=== PATIENT | female | born 2005 | race Caucasian/White ===

== ENCOUNTER 2025-05-06 21:46 | Emergency (ER) | payer MEDICAID | END 2025-05-06 22:55 | disposition left against medical advice (07) | LOC: ER 21:48 | DX: Z00.8 Encounter for other general examination (principal); Z53.21 Procedure and treatment not carried out due to patient leaving prior to being seen by health care provider ==

== ENCOUNTER 2025-05-07 10:22 | Emergency (ER) | payer MEDICAID ==
[~2025-05-07] VITALS: Ht 167.6 cm; Wt 88.2 kg
[2025-05-07 10:26] VITALS: BP 120/73; PULSE 85; RESP 18; TEMP 98.3; O2SAT 99
--- NOTE | 2025-05-07 10:30 | Physician Documentation ---
History of Present Illness ~ Chief Complaint: STD Stated Complaint: STD CHECK Time Seen by MD: 10:28 HPI This 19-year-old female presents to the emergency department reporting that her boyfriend was seen just yesterday for penile discharge and treated presumptively for gonorrhea. She requests the same. Denies symptoms. Denies any other concerns. Medication Reconciliation Allergies: Coded Allergies: No Known Allergies (Unverified , 05/07/25) Review of Systems ROS As stated above in the HPI, otherwise all systems are reviewed and negative. Physical Exam Vital Signs: Temperature: 98.3, Source: Temporal, Heart Rate: 85, Respiratory Rate: 18, BP: 120/73, Pulse Oximetry: 99, Weight: 88.200 Oxygen Flow Rate: 0 Physical Exam General: Alert, no apparent distress. Neck: Full range of motion. Respiratory: Lungs clear, no respiratory distress. Chest: No accessory muscle use. Cardiovascular: Regular rate and rhythm, no murmurs. Gastrointestinal: Soft, nontender, nondistended. Bowels sounds present. Extremities: Normal range of motion, no deformity. Neurologic: Oriented x4. Psychiatric: Normal mood and affect. Skin: Normal color, warm and dry. No edema, no ecchymosis. Progress Results/Orders Results/Orders Vital Signs 05/07/25 10:26 Temp 98.3 Pulse 85 Resp 18 B/P (MAP) 120/73 Pulse Ox 99 O2 Flow Rate 0 Medical Decision Making Additional Comment Well appearing, asymptomatic. Will presumptively treat for gonorrhea/chlamydia. Departure Time of Disposition: 10:29 Disposition: 01 HOME / SELF CARE / HOMELESS Impression: Primary Impression: Sexually transmitted disease Condition: Stable Discharge Instructions: Sexually Transmitted Disease Additional Instructions: You are being treated presumptively for gonorrhea and chlamydia. Followup with your primary care provider. Return if worse. Referrals: NO PRIMARY CARE PROVIDER (PCP) Education Educated: Patient Educated regarding: diagnosis, treatment, prognosis, need for follow up Signature Scribe Signature: x Attestation: The note accurately reflects work and decisions made by me.Rishi Dubon NP 05/07/25 10:32 RISHI LEON NP May 07, 2025 10:30
[2025-05-07] MEDS: CefTRIAXone 500MG IM Kit w/LIDOcaine IM ONE (11:09)
[2025-05-07] MEDS: CEFTRIAXONE 500 MG VIAL IM ONE (11:09)
== END 2025-05-07 11:13 | disposition home or self-care (01) ==
LOC: ER 10:23
DX: Z11.3 Encounter for screening for infections with a predominantly sexual mode of transmission (principal)
CPT/HCPCS: 96372; 99283; J0696